=== PATIENT | female | born 1970 | race Two or more races ===

== ENCOUNTER → 2024-07-26 | Outpatient (CLI) | payer MEDICAID, SELFPAY ==
--- NOTE | 2024-07-26 14:30 | ECHO_ITS ---
Transthoracic Echo Report Ht (in): 59 Wt (lb): 157 Exam Location: Echo Lab Status: Preadmit Director Hematology: Estefanía Hayes Indications: Procedure Performed: BP: / HR: Technical Quality: Adequate MEASUREMENTS (Male / Female) Normal Values 2D ECHO LV Diastolic Diameter PLAX 3.6 cm 4.2 - 5.9 / 3.9 - 5.3 cm LV Systolic Diameter PLAX 2.4 cm IVS Diastolic Thickness 0.9 cm 0.6 - 1.0 / 0.6 - 0.9 cm LVPW Diastolic Thickness 0.8 cm 0.6 - 1.0 / 0.6 - 0.9 cm LV Relative Wall Thickness 0.5 LVOT Diameter 1.9 cm LA Volume Index 21.8 cm?/m? 16 - 28 cm?/m? Ascending Aorta Diameter 2.7 cm DOPPLER AV Peak Velocity 74.7 cm/s AV Peak Gradient 2.2 mmHg LVOT Peak Velocity 75.7 cm/s LVOT Peak Gradient 2.3 mmHg AV Area Cont Eq pk 2.9 cm? MV Area PHT 5.1 cm? Mitral E Point Velocity 53.4 cm/s Mitral A Point Velocity 58.7 cm/s Mitral E to A Ratio 0.9 LV E' Lateral Velocity 9.4 cm/s Mitral E to LV E' Lateral Ratio 5.7 LV E' Septal Velocity 5.4 cm/s Mitral E to LV E' Septal Ratio 9.8 TR Peak Velocity 147.0 cm/s TR Peak Gradient 8.6 mmHg PV Peak Velocity 67.9 cm/s PV Peak Gradient 1.8 mmHg FINDINGS Left Ventricle Normal left ventricular size, wall thickness, systolic function with no obvious regional wall motion abnormalities. Normal left ventricular diastolic filling pattern for age. The ejection fraction is visually estimated at 55 %. Right Ventricle The right ventricle is normal in size and systolic function. The estimated right ventricular systolic pressure can not be determined due to innadequate Doppler signal. Left Atrium The left atrium is normal by two-dimensional, color flow and Doppler imaging with no structural abnormalities, no thrombus formation present. Right Atrium The right atrium is normal by two-dimensional imaging, color flow and Doppler imaging with no structural abnormalities, no thrombus formation present. Atrial Septum The interatrial septum appears normal with no evidence of a shunt. Aorta The aorta is normal by two-dimensional, color flow and Doppler interrogation. Mitral Valve The mitral valve is normal by two-dimensional, color flow and Doppler interrogation. There is no significant mitral valve regurgitation, stenosis or prolapse. Aortic Valve The aortic valve is trileaflet and normal by two-dimensional, color flow and Doppler interrogation. There is no significant aortic valve regurgitation. Tricuspid Valve The tricuspid valve is normal by two-dimensional, color flow and Doppler interrogation. There is no significant tricuspid valve regurgitation. Pulmonic Valve The pulmonic valve is not well visualized. There is no significant pulmonic valve regurgitation. Vessels The pulmonary artery appears normal. The inferior vena cava pulmonary and hepatic veins appear normal. Pericardium The pericardium is normal by two-dimensional imaging. There is no significant pericardial effusion. CONCLUSIONS Indications: Malignant Neoplasm of Upper-Outer Quadrant of Left Female Breast The transthoracic study is normal by two-dimensional, color flow imaging and Doppler interrogation. Normal left ventricular size and function. Approximate ejection fraction is 55%. Trace mitral and trace tricuspid regurgitation No Pericardial Effusion. Betsy Mendes (Electronically Signed) Final Date: 26 July 2024 17:59
== END | disposition home or self-care (01) ==
LOC: SDIM 14:14
PROVIDERS: PCP Internal Medicine Hematology & Oncology; Referring Provider Internal Medicine Hematology & Oncology; Visit Provider Internal Medicine Hematology & Oncology
DX: I08.1 Rheumatic disorders of both mitral and tricuspid valves (principal); C50.412 Malignant neoplasm of upper-outer quadrant of left female breast; Z51.11 Encounter for antineoplastic chemotherapy
CPT/HCPCS: 93306